=== PATIENT | female | born 1965 | race Caucasian/White ===

== ENCOUNTER → 2023-02-28 13:57 | Outpatient (BNVA) | payer MEDICARE, MEDICAID, SELFPAY | PROVIDERS: Visit Provider Surgery | DX: L98.9 Disorder of the skin and subcutaneous tissue, unspecified (principal); D61.818 Other pancytopenia | CPT/HCPCS: 99203; 99243 ==

== ENCOUNTER 2024-09-21 02:16 | Outpatient (CLI) | payer MEDICARE, SELFPAY ==
--- NOTE | 2024-09-21 07:30 | DI.RAD_ITS ---
Exam(s) XR FOOT RT COMPLETE EXAM: XR FOOT RT COMPLETE CLINICAL HISTORY: Right toe pain,rt footpain,m79.671,m79.674. TECHNIQUE: 2D digital imaging was performed. Three views. COMPARISON: No exams were available for comparison FINDINGS: BONES: No acute fracture is present. No bony destructive lesion is seen. Small heel spurs. JOINTS: No dislocation present. Hammertoe deformities and degenerative changes at the interphalangea l joints of the 2nd through 5th toes. SOFT TISSUE: Normal. IMPRESSION: Hammertoe deformities and degenerative changes DATA REPOSITORY: RADIATION DOSE DELIVERED:
== END 2024-09-21 02:36 ==
PROVIDERS: PCP Internal Medicine; Visit Provider Podiatrist
DX: M79.671 Pain in right foot (principal); M67.471 Ganglion, right ankle and foot; G57.61 Lesion of plantar nerve, right lower limb; M20.41 Other hammer toe(s) (acquired), right foot
CPT/HCPCS: 64455; 99214; J0702; J1100; 73630

== ENCOUNTER → 2024-12-31 14:25 | Outpatient (BNVA) | payer MEDICARE, SELFPAY | PROVIDERS: PCP Internal Medicine; Referring Provider Internal Medicine; Visit Provider Podiatrist | DX: M67.471 Ganglion, right ankle and foot (principal); G57.61 Lesion of plantar nerve, right lower limb; M79.671 Pain in right foot; M20.41 Other hammer toe(s) (acquired), right foot; L60.0 Ingrowing nail | CPT/HCPCS: 64455; J0702; J1100 ==

== ENCOUNTER → 2025-07-08 14:52 | Outpatient (BNVA) | payer MEDICARE, SELFPAY | PROVIDERS: PCP Internal Medicine; Referring Provider Internal Medicine; Visit Provider Podiatrist | DX: M67.471 Ganglion, right ankle and foot (principal); G57.61 Lesion of plantar nerve, right lower limb; M79.671 Pain in right foot; M20.41 Other hammer toe(s) (acquired), right foot; L60.0 Ingrowing nail | CPT/HCPCS: 11750 ==

== ENCOUNTER → 2025-07-29 15:12 | Outpatient (BNVA) | payer MEDICARE, SELFPAY | PROVIDERS: PCP Internal Medicine; Referring Provider Internal Medicine; Visit Provider Podiatrist | DX: L60.0 Ingrowing nail (principal); M20.41 Other hammer toe(s) (acquired), right foot; M67.471 Ganglion, right ankle and foot; G57.61 Lesion of plantar nerve, right lower limb | CPT/HCPCS: 99213 ==